=== PATIENT | female | born 1965 | race Caucasian/White ===

== ENCOUNTER 2020-05-26 06:28 | Observation (INO) ==
[~2020-05-26 06:28] MED LIST: Buffered Lidocaine 1% SYRIN 1 ml INTRADERM ONE; DiMENhydriNATE IV 50 mg/ml 1 ml VIAL IV PUSH ONE; Lactated Ringers 1000 ml BAG 1,000 ML IV SCH
[2020-05-26] MEDS ORDERED: DiMENhydriNATE IV 50 mg/ml 1 ml VIAL ONE (06:58)
[2020-05-26] MEDS ORDERED: Sodium Citrate/Citric Acid LIQ 15 ML UDC ONE (06:59)
[2020-05-26] MEDS ORDERED: ceFAZolin 2 GM PREMIX 2 GM/50 ML BAG ONE (06:59)
[2020-05-26] MEDS ORDERED: Bupivacaine 0.5% SDV PF 30ML VIAL ONE (07:07)
[2020-05-26] MEDS: Sodium Citrate/Citric Acid LIQ 15 ML UDC PO ONE ×2 (07:19→07:23)
[2020-05-26] MEDS ORDERED: ROPIVACAINE 5 MG/ML 30 ML BTL (0.5%) ONE (08:10)
[2020-05-26] MEDS ORDERED: Lidocaine 1% MPF 5 ML VIAL ONE (08:10)
[2020-05-26] MEDS ORDERED: Midazolam 5 mg/5 ml VIAL 1 mg/ml 5 ml VIAL (5 mg) ONE (08:12)
[2020-05-26] MEDS ORDERED: Lidocaine 2% PF 5 ML VIAL ONE (08:52)
[2020-05-26] MEDS ORDERED: Propofol 10 MG/ML 20 ML BTL ONE (08:52)
[2020-05-26] MEDS ORDERED: oxyCODONE/Acetamin 5/325 mg TAB PO PRN (09:35)
[2020-05-26] MEDS ORDERED: Prochlorperazine 5 mg/ml 2 ml VIAL (10 mg) IV PRN (09:35)
[2020-05-26] MEDS ORDERED: fentaNYL 100 mcg/2 ml 50 MCG/ML VIAL IV PRN (09:35)
[2020-05-26] MEDS ORDERED: Naloxone 0.4 mg VIAL 0.4 mg/ml 1 ml VIAL IV PRN (09:35)
[2020-05-26] MEDS ORDERED: Phenylephrine 40 mcg/mL 10mL (400mcg) SYRINGE ONE (09:36)
[2020-05-26] MEDS ORDERED: Ondansetron 4 mg VIAL 2 MG/ML 2 ml VIAL ONE (10:38)
[2020-05-26] MEDS ORDERED: Ondansetron ODT 4 mg TAB 4 MG TAB PO PRN (11:20)
[2020-05-26] MEDS ORDERED: Morphine 2 MG/ML SYRINGE IV PRN (11:20)
[2020-05-26] MEDS ORDERED: Lactulose 30 ml UDC PO PRN (11:20)
[2020-05-26] MEDS ORDERED: diPHENhydraMINE IV 50 MG/ML 1 ml VIAL (BENADRYL) IV PRN (11:20)
[2020-05-26] MEDS ORDERED: diPHENhydraMINE 25 mg TAB PO PRN (11:20)
[2020-05-26] MEDS ORDERED: Ondansetron 4 mg VIAL 2 MG/ML 2 ml VIAL IV PRN (11:20)
[2020-05-26] MEDS ORDERED: Magnesium Hydroxide LIQ 30 ML UDC PO PRN (11:20)
[2020-05-26] MEDS ORDERED: Lactated Ringers 1000 ml BAG 1,000 ML IV SCH (12:00)
[2020-05-26] MEDS ORDERED: oxyCODONE/Acetamin 5/325 mg TAB ONE (12:19)
[2020-05-26] MEDS ORDERED: Dextrose 50% Syringe 50 ml 25 GM/50 ML SYRINGE IV PUSH PRN (13:51)
[2020-05-26] MEDS ORDERED: Clindamycin 600 MG/D5W BAG 600 MG/50 ML BAG IV SCH ×2 (14:00→17:00)
[2020-05-26] MEDS: Clindamycin VIAL 600 MG in NS 0.9% 50 ML 50 ML IVPB SCH (16:39)
[2020-05-26] MEDS: Magnesium Hydroxide LIQ 30 ML UDC PO SCH (21:25)
[2020-05-27] MEDS: Clindamycin VIAL 600 MG in NS 0.9% 50 ML 50 ML IVPB SCH ×2 (00:31→09:34)
[2020-05-27 08:49] LABS: ABS Basophils 0.1 10^3/ul (0-0.2); ABS Eosinophils 0.3 10^3/ul (0-0.6); ABS Lymphocytes 1.7 10^3/ul (1.0-4.8); ABS Monocytes 0.5 10^3/ul (0-0.8); ABS Neutrophils 3.6 10^3/ul (1.5-7.7); Eosinophil % 4.9 %; Hematocrit 37 % (35-47); Hemoglobin 12.4 g/dL (12.0-16.0); Mean Corpuscular HGB Conc 33 g/dL (31-36); Mean Corpuscular Hemoglobin 30 pg (27-31); Mean Corpuscular Volume 88 fL (80-97); Mean Platelet Volume 9.2 fL (7.4-10.4); Nucleated Red Blood Cells % 0.1; Platelet Count 300 10^3/uL (150-450); Red Blood Count 4.21 10^6 /uL (3.70-4.87); Red Cell Distribution Width 15 % (10-15); White Blood Count 6.2 10^3/uL (3.5-10.8)
[2020-05-27] MEDS ORDERED: DULoxetine DR 60 mg CAP PO SCH (09:00)
[2020-05-27] MEDS ORDERED: Vitamin THERAPEUTIC TAB PO SCH (09:00)
[2020-05-27 09:09] LABS: Calcium 8.6 mg/dL (8.6-10.3); EGFR African American 86.7 (>60); EGFR Non-African American 71.6 (>60)
[2020-05-27] MEDS: Magnesium Hydroxide LIQ 30 ML UDC PO SCH (10:22)
[2020-05-27 11:22] VITALS: BP 111/69
[2020-05-27] MEDS ORDERED: Enoxaparin 40 MG/0.4 ML SYR SUBCUT SCH (12:00)
== END 2020-05-27 15:50 | disposition home or self-care (01) ==
LOC: SSU 06:28 → OR 06:28
PROVIDERS: ADMIT Physician Assistant; ATTEND Orthopaedic Surgery